=== PATIENT | female | born 1940 | race Caucasian/White ===

== ENCOUNTER 2018-11-09 14:13 | Inpatient (IN) | payer MEDICARE, MEDICAID ==
[~2018-11-09] VITALS: Ht 154.9 cm; Wt 57.6 kg
[2018-11-09 17:00] VITALS: BP 158/66
[2018-11-09] MEDS ORDERED: ACETAMINOPHEN 325 MG TABLET PO PRN (17:15)
[2018-11-09] MEDS ORDERED: TraMADol HCL 50 MG TABLET PO PRN (17:15)
[2018-11-09] MEDS ORDERED: DOCUSATE SODIUM 283 MG/5 ML MINI-ENEMA PR PRN (17:15)
[2018-11-09] MEDS ORDERED: DEXTROSE 50%-WATER 25 GM/50 ML SYRINGE IVP PRN (17:15)
[2018-11-09] MEDS: INSULIN LISPRO 100 UNITS/ML SQ SCH (18:30)
[2018-11-09] MEDS: INSULIN LISPRO 100 UNITS/ML SQ PRN (18:31)
[2018-11-09] MEDS: CARVEDILOL 12.5 MG TABLET PO SCH (19:05)
[2018-11-09 20:03] LABS: GLUCOMETER DEV NAME(LOC) 2WR.2; GLUCOSE,POINT OF CARE 146 MG/DL (70-110)
[2018-11-09 20:32] VITALS: BP 141/54
[2018-11-09] MEDS: TIMOLOL MALEATE 0.5% 5 ML OPHTHALMIC SOLUTION OU SCH ×2 (21:00→21:11)
[2018-11-09] MEDS: FAMOTIDINE 20 MG TABLET PO SCH (21:11)
[2018-11-09 21:34] LABS: GLUCOMETER DEV NAME(LOC) 2WR.2; GLUCOSE,POINT OF CARE 189 MG/DL (70-110)
[2018-11-09 22:01] VITALS: BP 153/64
[2018-11-10] VITALS: BP 151/72
[2018-11-10 06:29] LABS: GLUCOMETER DEV NAME(LOC) 2WR.1; GLUCOSE,POINT OF CARE 116 MG/DL (70-110)
[2018-11-10 06:49] LABS: BASOPHILS % (AUTO) 0.9 % (0.0-2.0); EOSINOPHILS % (AUTO) 1.4 % (1.0-6.0); HEMATOCRIT 35.8 % (36-46); HEMOGLOBIN 12.5 g/dL (12.0-16.0); LYMPHOCYTES # (AUTO) 1.3 K/uL (1.0-4.8); LYMPHOCYTES % (AUTO) 20.3 % (22.0-44.0); MEAN CORPUSCULAR HEMOGLOBIN 32.2 pg (26.0-34.0); MEAN CORPUSCULAR VOLUME 92 fL (80-100); MONOCYTES # (AUTO) 0.7 K/uL (0.1-1.0); NEUTROPHILS # (AUTO) 4.4 K/uL (1.8-7.7); NEUTROPHILS % (AUTO) 66.4 % (40.0-70.0); PLATELET COUNT (AUTO) 212 K/uL (150-450); RED BLOOD CELL COUNT(AUTO) 3.89 MIL/uL (4.00-5.20); RED CELL DISTRIBUTION WIDTH 13.1 % (11.5-14.5)
[2018-11-10 07:04] LABS: ALANINE AMINOTRANSFERASE 14 U/L (12-78); ALBUMIN 2.5 g/dL (3.4-5.0); ALKALINE PHOSPHATASE 86 U/L (46-116); ANION GAP 7 mmol/L (8-16); ASPARTATE AMINOTRANSFERASE 15 U/L (15-37); BILIRUBIN,TOTAL 0.4 mg/dL (0.1-1.0); CALCIUM, TOTAL 9.1 mg/dL (8.8-10.5); CARBON DIOXIDE 28 mmol/L (22-29); CHLORIDE 104 mmol/L (98-107); GLUCOSE,RANDOM 133 mg/dL (70-110); POTASSIUM 3.7 mmol/L (3.5-5.1); SODIUM SERUM 139 mmol/L (136-145); TOTAL PROTEIN, SERUM 5.9 g/dL (6.4-8.2); UREA NITROGEN, BLOOD 18 mg/dL (7-18)
[2018-11-10 07:14] LABS: GLOMERULAR FILTR. RATE CALC > 60 mL/min (>60)
[2018-11-10] MEDS ORDERED: INSULIN LISPRO 100 UNITS/ML SQ SCH (07:30)
[2018-11-10] MEDS ORDERED: CARVEDILOL 12.5 MG TABLET PO SCH (07:30)
[2018-11-10 08:00] VITALS: BP 154/64
[2018-11-10] MEDS: TIMOLOL MALEATE 0.5% 5 ML OPHTHALMIC SOLUTION OU SCH ×2 (09:42→21:41)
[2018-11-10] MEDS: VALSARTAN 40 MG TABLET PO SCH (09:42)
[2018-11-10] MEDS: FAMOTIDINE 20 MG TABLET PO SCH ×2 (09:43→21:41)
[2018-11-10] MEDS: AmLODIPine BESYLATE 10 MG TABLET PO SCH (09:43)
[2018-11-10] MEDS: SENNA 187 MG TABLET PO SCH (09:43)
[2018-11-10] MEDS: CARVEDILOL 12.5 MG TABLET PO SCH ×2 (09:43→17:14)
[2018-11-10] MEDS: INSULIN LISPRO 100 UNITS/ML SQ SCH ×3 (09:55→17:16)
[2018-11-10] MEDS ORDERED: LOPERAMIDE HCL 2 MG CAPSULE PO PRN (11:45)
[2018-11-10] MEDS: INSULIN GLARGINE,HUM.REC.ANLOG 100 UNITS/ML SQ SCH (13:10)
[2018-11-10 13:39] LABS: GLUCOMETER DEV NAME(LOC) 2WR.2; GLUCOSE,POINT OF CARE 234 MG/DL (70-110)
[2018-11-10 16:00] VITALS: BP 161/71
[2018-11-10] MEDS: INSULIN LISPRO 100 UNITS/ML SQ PRN ×2 (17:18→21:48)
[2018-11-10] MEDS: MELATONIN 5 MG TABLET PO PRN (21:51)
[2018-11-10] MEDS: ACETAMINOPHEN 325 MG TABLET PO PRN (21:52)
[2018-11-10 22:04] LABS: GLUCOMETER DEV NAME(LOC) 2WR.1; GLUCOSE,POINT OF CARE 221 MG/DL (70-110)
[2018-11-10 22:04] LABS: GLUCOMETER DEV NAME(LOC) 2WR.1; GLUCOSE,POINT OF CARE 310 MG/DL (70-110)
[2018-11-11] VITALS: BP 150/62
[2018-11-11 06:35] LABS: GLUCOMETER DEV NAME(LOC) 2WR.1; GLUCOSE,POINT OF CARE 130 MG/DL (70-110)
[2018-11-11 07:50] VITALS: BP 153/69
[2018-11-11] MEDS: SENNA 187 MG TABLET PO SCH ×2 (09:00→09:15)
[2018-11-11] MEDS: CARVEDILOL 12.5 MG TABLET PO SCH ×2 (09:15→17:20)
[2018-11-11] MEDS: AmLODIPine BESYLATE 10 MG TABLET PO SCH (09:16)
[2018-11-11] MEDS: MULTIVITAMINS WITH MINERALS, THERAPEUTIC TABLET PO SCH (09:16)
[2018-11-11] MEDS: VALSARTAN 40 MG TABLET PO SCH (09:16)
[2018-11-11] MEDS: FAMOTIDINE 20 MG TABLET PO SCH ×2 (09:16→20:39)
[2018-11-11] MEDS: TIMOLOL MALEATE 0.5% 5 ML OPHTHALMIC SOLUTION OU SCH ×2 (09:16→20:39)
[2018-11-11] MEDS: INSULIN LISPRO 100 UNITS/ML SQ SCH ×3 (09:23→17:22)
[2018-11-11 10:20] VITALS: BP 155/66
[2018-11-11 11:25] VITALS: BP 145/66
[2018-11-11] MEDS: INSULIN GLARGINE,HUM.REC.ANLOG 100 UNITS/ML SQ SCH (11:43)
[2018-11-11] MEDS: INSULIN LISPRO 100 UNITS/ML SQ PRN ×2 (11:44→20:43)
[2018-11-11 15:09] LABS: GLUCOMETER DEV NAME(LOC) 2WR.1; GLUCOSE,POINT OF CARE 352 MG/DL (70-110)
[2018-11-11 16:18] VITALS: BP 144/70
[2018-11-11] MEDS: ACETAMINOPHEN 325 MG TABLET PO PRN (17:48)
[2018-11-11 18:38] LABS: GLUCOMETER DEV NAME(LOC) 2WR.1; GLUCOSE,POINT OF CARE 98 MG/DL (70-110)
[2018-11-11] MEDS: MELATONIN 5 MG TABLET PO PRN (20:39)
[2018-11-11 21:19] LABS: GLUCOMETER DEV NAME(LOC) 2WR.2; GLUCOSE,POINT OF CARE 166 MG/DL (70-110)
[2018-11-12 01:27] VITALS: BP 155/62
[2018-11-12 06:29] LABS: GLUCOMETER DEV NAME(LOC) 2WR.2; GLUCOSE,POINT OF CARE 190 MG/DL (70-110)
[2018-11-12 07:18] VITALS: BP 157/65
[2018-11-12] MEDS: CARVEDILOL 12.5 MG TABLET PO SCH ×2 (08:25→16:29)
[2018-11-12] MEDS: INSULIN LISPRO 100 UNITS/ML SQ SCH ×3 (08:28→17:37)
[2018-11-12] MEDS: INSULIN LISPRO 100 UNITS/ML SQ PRN ×3 (08:29→20:44)
[2018-11-12] MEDS: SENNA 187 MG TABLET PO SCH ×2 (08:31→08:38)
[2018-11-12] MEDS: MULTIVITAMINS WITH MINERALS, THERAPEUTIC TABLET PO SCH (08:31)
[2018-11-12] MEDS: FAMOTIDINE 20 MG TABLET PO SCH ×2 (08:31→20:36)
[2018-11-12] MEDS: TIMOLOL MALEATE 0.5% 5 ML OPHTHALMIC SOLUTION OU SCH ×2 (08:32→20:36)
[2018-11-12] MEDS: AmLODIPine BESYLATE 10 MG TABLET PO SCH (08:33)
[2018-11-12 09:57] VITALS: BP 152/69
[2018-11-12] MEDS: VALSARTAN 40 MG TABLET PO SCH (09:58)
[2018-11-12 12:39] LABS: GLUCOMETER DEV NAME(LOC) 2WR.1; GLUCOSE,POINT OF CARE 173 MG/DL (70-110)
[2018-11-12] MEDS: INSULIN GLARGINE,HUM.REC.ANLOG 100 UNITS/ML SQ SCH (12:42)
[2018-11-12 16:08] VITALS: BP 140/65
[2018-11-12 17:14] LABS: GLUCOMETER DEV NAME(LOC) 2WR.2; GLUCOSE,POINT OF CARE 120 MG/DL (70-110)
[2018-11-12] MEDS: MELATONIN 5 MG TABLET PO PRN (20:36)
[2018-11-12] MEDS: GABAPENTIN 100 MG CAPSULE PO SCH (20:36)
[2018-11-12 21:45] LABS: GLUCOMETER DEV NAME(LOC) 2WR.1; GLUCOSE,POINT OF CARE 147 MG/DL (70-110)
[2018-11-13 05:32] VITALS: BP 142/59
[2018-11-13 05:59] LABS: GLUCOMETER DEV NAME(LOC) 2WR.2; GLUCOSE,POINT OF CARE 167 MG/DL (70-110)
[2018-11-13 07:54] VITALS: BP 150/56
[2018-11-13] MEDS: TIMOLOL MALEATE 0.5% 5 ML OPHTHALMIC SOLUTION OU SCH ×2 (08:40→20:48)
[2018-11-13] MEDS: INSULIN LISPRO 100 UNITS/ML SQ SCH ×3 (08:45→17:21)
[2018-11-13] MEDS: INSULIN LISPRO 100 UNITS/ML SQ PRN ×4 (08:46→20:57)
[2018-11-13] MEDS: GABAPENTIN 100 MG CAPSULE PO SCH ×2 (08:49→20:48)
[2018-11-13] MEDS: MULTIVITAMINS WITH MINERALS, THERAPEUTIC TABLET PO SCH (08:49)
[2018-11-13] MEDS: SENNA 187 MG TABLET PO SCH (08:49)
[2018-11-13] MEDS: CARVEDILOL 12.5 MG TABLET PO SCH ×2 (08:49→17:19)
[2018-11-13] MEDS: AmLODIPine BESYLATE 10 MG TABLET PO SCH (08:50)
[2018-11-13] MEDS: VALSARTAN 40 MG TABLET PO SCH (08:50)
[2018-11-13] MEDS: FAMOTIDINE 20 MG TABLET PO SCH ×2 (08:50→20:49)
[2018-11-13 09:50] VITALS: BP 131/61
[2018-11-13 12:25] LABS: GLUCOMETER DEV NAME(LOC) 2WR.2; GLUCOSE,POINT OF CARE 221 MG/DL (70-110)
[2018-11-13] MEDS: INSULIN GLARGINE,HUM.REC.ANLOG 100 UNITS/ML SQ SCH (12:50)
[2018-11-13 16:27] VITALS: BP 95/54
[2018-11-13 18:14] LABS: GLUCOMETER DEV NAME(LOC) 2WR.2; GLUCOSE,POINT OF CARE 147 MG/DL (70-110)
[2018-11-13] MEDS: MELATONIN 5 MG TABLET PO PRN (20:48)
[2018-11-13 21:21] LABS: APPEARANCE,URINE CLEAR (CLEAR); BILIRUBIN,URINE NEGATIVE (NEGATIVE); GLUCOSE, URINE (UA) 500 mg/dL (NEGATIVE); KETONES,URINE NEGATIVE (NEGATIVE); LEUKOCYTE ESTERASE ,URINE NEGATIVE (NEGATIVE); NITRATE,URINE NEGATIVE (NEGATIVE); OCCULT BLOOD,URINE NEGATIVE (NEGATIVE); PROTEIN,URINE SEE CONFIRM (NEGATIVE); UROBILINOGEN,URINE 0.2 mg/dL (<=1.0)
[2018-11-13 21:39] LABS: GLUCOMETER DEV NAME(LOC) 2WR.1; GLUCOSE,POINT OF CARE 173 MG/DL (70-110)
[2018-11-13 21:50] LABS: SULFOSALICYLIC ACID,URINE 2+ (Negative)
[2018-11-13 21:51] LABS: BACTERIA,URINE Moderate /HPF (None Seen)
[2018-11-13 21:52] LABS: RBC,URINE 0-2 /HPF (0-2); SQUAMOUS EPITHELIAL CELL,UR Few /LPF (None Seen); WBC,URINE 0-2 /HPF (0-5)
[2018-11-14] VITALS: BP 117/50
[2018-11-14 05:59] LABS: GLUCOMETER DEV NAME(LOC) 2WR.1; GLUCOSE,POINT OF CARE 129 MG/DL (70-110)
[2018-11-14 07:15] VITALS: BP 130/96
[2018-11-14] MEDS: VALSARTAN 40 MG TABLET PO SCH (08:19)
[2018-11-14] MEDS: INSULIN LISPRO 100 UNITS/ML SQ SCH ×3 (08:19→17:18)
[2018-11-14] MEDS: AmLODIPine BESYLATE 10 MG TABLET PO SCH (08:20)
[2018-11-14] MEDS: SENNA 187 MG TABLET PO SCH (08:20)
[2018-11-14] MEDS: MULTIVITAMINS WITH MINERALS, THERAPEUTIC TABLET PO SCH (08:20)
[2018-11-14] MEDS: GABAPENTIN 100 MG CAPSULE PO SCH ×2 (08:20→20:39)
[2018-11-14] MEDS: CARVEDILOL 12.5 MG TABLET PO SCH ×2 (08:20→17:17)
[2018-11-14] MEDS: TIMOLOL MALEATE 0.5% 5 ML OPHTHALMIC SOLUTION OU SCH ×2 (09:01→20:38)
[2018-11-14] MEDS: FAMOTIDINE 20 MG TABLET PO SCH ×2 (09:01→20:39)
[2018-11-14] MEDS: INSULIN GLARGINE,HUM.REC.ANLOG 100 UNITS/ML SQ SCH (11:39)
[2018-11-14] MEDS: INSULIN LISPRO 100 UNITS/ML SQ PRN ×3 (11:41→20:40)
[2018-11-14 12:39] LABS: GLUCOMETER DEV NAME(LOC) 2WR.1; GLUCOSE,POINT OF CARE 314 MG/DL (70-110)
[2018-11-14 17:29] LABS: GLUCOMETER DEV NAME(LOC) 2WR.2; GLUCOSE,POINT OF CARE 185 MG/DL (70-110)
[2018-11-14 17:48] VITALS: BP 142/55
[2018-11-14] MEDS: MELATONIN 5 MG TABLET PO PRN (20:39)
[2018-11-14 21:04] LABS: GLUCOMETER DEV NAME(LOC) 2WR.1; GLUCOSE,POINT OF CARE 183 MG/DL (70-110)
[2018-11-15] VITALS: BP 120/46
[2018-11-15 05:55] LABS: GLUCOMETER DEV NAME(LOC) 2WR.1; GLUCOSE,POINT OF CARE 143 MG/DL (70-110)
[2018-11-15 07:32] VITALS: BP 141/54
[2018-11-15] MEDS: FAMOTIDINE 20 MG TABLET PO SCH ×2 (08:24→20:42)
[2018-11-15] MEDS: GABAPENTIN 100 MG CAPSULE PO SCH ×2 (08:24→20:42)
[2018-11-15] MEDS: AmLODIPine BESYLATE 10 MG TABLET PO SCH (08:24)
[2018-11-15] MEDS: CARVEDILOL 12.5 MG TABLET PO SCH ×2 (08:24→16:25)
[2018-11-15] MEDS: SENNA 187 MG TABLET PO SCH (08:24)
[2018-11-15] MEDS: VALSARTAN 40 MG TABLET PO SCH (08:24)
[2018-11-15] MEDS: TIMOLOL MALEATE 0.5% 5 ML OPHTHALMIC SOLUTION OU SCH ×2 (08:25→20:42)
[2018-11-15] MEDS: INSULIN LISPRO 100 UNITS/ML SQ SCH ×3 (08:27→16:42)
[2018-11-15] MEDS: INSULIN LISPRO 100 UNITS/ML SQ PRN ×4 (08:28→20:45)
[2018-11-15] MEDS: MULTIVITAMINS WITH MINERALS, THERAPEUTIC TABLET PO SCH (08:39)
[2018-11-15] MEDS: INSULIN GLARGINE,HUM.REC.ANLOG 100 UNITS/ML SQ SCH (12:38)
[2018-11-15 13:39] LABS: GLUCOMETER DEV NAME(LOC) 2WR.1; GLUCOSE,POINT OF CARE 249 MG/DL (70-110)
[2018-11-15 15:42] VITALS: BP 113/57
[2018-11-15 17:20] LABS: GLUCOMETER DEV NAME(LOC) 2WR.2; GLUCOSE,POINT OF CARE 191 MG/DL (70-110)
[2018-11-15] MEDS: MELATONIN 5 MG TABLET PO PRN (20:42)
[2018-11-15 20:59] LABS: GLUCOMETER DEV NAME(LOC) 2WR.2; GLUCOSE,POINT OF CARE 204 MG/DL (70-110)
[2018-11-15] MEDS ORDERED: DICL2100G TP (21:38)
[2018-11-15] MEDS ORDERED: AMLO-511 PO (21:38)
[2018-11-15] MEDS ORDERED: PRED5DRO25 OU (21:38)
[2018-11-15] MEDS ORDERED: DEXL60CA3 PO (21:38)
[2018-11-15] MEDS ORDERED: TIMO.5OS OU (21:38)
[2018-11-15] MEDS ORDERED: ISOS30TA6 PO (21:38)
[2018-11-15] MEDS ORDERED: LOSA50TA64 PO (21:38)
[2018-11-15] MEDS ORDERED: LOPE2 PO (21:38)
[2018-11-15] MEDS ORDERED: INSU200I4 SQ (21:38)
[2018-11-15] MEDS ORDERED: METF-960 PO (21:38)
[2018-11-15] MEDS ORDERED: CYAN-11 IM (21:38)
[2018-11-15] MEDS ORDERED: CARV12 PO (21:38)
[2018-11-16 04:08] VITALS: BP 155/63
[2018-11-16 07:04] LABS: GLUCOMETER DEV NAME(LOC) 2WR.1; GLUCOSE,POINT OF CARE 179 MG/DL (70-110)
[2018-11-16 07:11] VITALS: BP 141/55
[2018-11-16] MEDS: FAMOTIDINE 20 MG TABLET PO SCH ×2 (08:14→21:04)
[2018-11-16] MEDS: GABAPENTIN 100 MG CAPSULE PO SCH ×2 (08:14→21:04)
[2018-11-16] MEDS: VALSARTAN 40 MG TABLET PO SCH (08:14)
[2018-11-16] MEDS: MULTIVITAMINS WITH MINERALS, THERAPEUTIC TABLET PO SCH (08:14)
[2018-11-16] MEDS: ASPIRIN 81 MG CHEWABLE TABLET PO SCH (08:15)
[2018-11-16] MEDS: CARVEDILOL 12.5 MG TABLET PO SCH ×2 (08:15→16:23)
[2018-11-16] MEDS: AmLODIPine BESYLATE 10 MG TABLET PO SCH (08:15)
[2018-11-16] MEDS: INSULIN LISPRO 100 UNITS/ML SQ SCH ×3 (08:20→17:34)
[2018-11-16] MEDS: INSULIN LISPRO 100 UNITS/ML SQ PRN ×4 (08:20→21:05)
[2018-11-16] MEDS: TIMOLOL MALEATE 0.5% 5 ML OPHTHALMIC SOLUTION OU SCH ×2 (08:22→21:04)
[2018-11-16] MEDS: SENNA 187 MG TABLET PO SCH (08:23)
[2018-11-16] MEDS: ACETAMINOPHEN 325 MG TABLET PO PRN (08:36)
[2018-11-16 11:55] LABS: GLUCOMETER DEV NAME(LOC) 2WR.2; GLUCOSE,POINT OF CARE 276 MG/DL (70-110)
[2018-11-16] MEDS: INSULIN GLARGINE,HUM.REC.ANLOG 100 UNITS/ML SQ SCH (12:43)
[2018-11-16 15:59] VITALS: BP 116/45
[2018-11-16 17:04] LABS: GLUCOMETER DEV NAME(LOC) 2WR.1; GLUCOSE,POINT OF CARE 169 MG/DL (70-110)
[2018-11-16] MEDS: MELATONIN 5 MG TABLET PO PRN (21:05)
[2018-11-16 21:39] LABS: GLUCOMETER DEV NAME(LOC) 2WR.2; GLUCOSE,POINT OF CARE 205 MG/DL (70-110)
[2018-11-17 02:35] VITALS: BP 141/51
[2018-11-17 06:06] LABS: GLUCOMETER DEV NAME(LOC) 2WR.1; GLUCOSE,POINT OF CARE 207 MG/DL (70-110)
[2018-11-17 07:49] VITALS: BP 143/53
[2018-11-17] MEDS: SENNA 187 MG TABLET PO SCH ×2 (09:00→20:47)
[2018-11-17] MEDS: INSULIN LISPRO 100 UNITS/ML SQ PRN ×4 (09:17→20:35)
[2018-11-17] MEDS: INSULIN LISPRO 100 UNITS/ML SQ SCH (09:18)
[2018-11-17] MEDS: TIMOLOL MALEATE 0.5% 5 ML OPHTHALMIC SOLUTION OU SCH ×2 (09:19→20:31)
[2018-11-17] MEDS: VALSARTAN 40 MG TABLET PO SCH (09:19)
[2018-11-17] MEDS: FAMOTIDINE 20 MG TABLET PO SCH ×2 (09:20→20:32)
[2018-11-17] MEDS: CARVEDILOL 12.5 MG TABLET PO SCH ×2 (09:20→16:36)
[2018-11-17] MEDS: AmLODIPine BESYLATE 10 MG TABLET PO SCH (09:20)
[2018-11-17] MEDS: MULTIVITAMINS WITH MINERALS, THERAPEUTIC TABLET PO SCH (09:20)
[2018-11-17] MEDS: GABAPENTIN 100 MG CAPSULE PO SCH ×2 (09:20→20:32)
[2018-11-17] MEDS: ASPIRIN 81 MG CHEWABLE TABLET PO SCH (09:24)
[2018-11-17 12:14] LABS: GLUCOMETER DEV NAME(LOC) 2WR.1; GLUCOSE,POINT OF CARE 246 MG/DL (70-110)
[2018-11-17] MEDS: INSULIN GLARGINE,HUM.REC.ANLOG 100 UNITS/ML SQ SCH (13:00)
[2018-11-17 15:10] VITALS: BP 143/77
[2018-11-17] MEDS: MetFORMIN HCL 500 MG TABLET PO SCH (17:41)
[2018-11-17 17:49] LABS: GLUCOMETER DEV NAME(LOC) 2WR.1; GLUCOSE,POINT OF CARE 221 MG/DL (70-110)
[2018-11-17] MEDS: MELATONIN 5 MG TABLET PO PRN (20:32)
[2018-11-17 23:49] LABS: GLUCOMETER DEV NAME(LOC) 2WR.1; GLUCOSE,POINT OF CARE 248 MG/DL (70-110)
[2018-11-18 03:00] VITALS: BP 139/50
[2018-11-18 06:25] LABS: GLUCOMETER DEV NAME(LOC) 2WR.2; GLUCOSE,POINT OF CARE 182 MG/DL (70-110)
[2018-11-18 07:49] VITALS: BP 135/50
[2018-11-18] MEDS: CARVEDILOL 12.5 MG TABLET PO SCH ×2 (08:07→17:18)
[2018-11-18] MEDS: INSULIN LISPRO 100 UNITS/ML SQ PRN ×4 (08:07→21:27)
[2018-11-18] MEDS: MetFORMIN HCL 500 MG TABLET PO SCH ×2 (08:07→17:17)
[2018-11-18] MEDS: GABAPENTIN 100 MG CAPSULE PO SCH ×2 (08:08→20:43)
[2018-11-18] MEDS: MULTIVITAMINS WITH MINERALS, THERAPEUTIC TABLET PO SCH (08:09)
[2018-11-18] MEDS: TIMOLOL MALEATE 0.5% 5 ML OPHTHALMIC SOLUTION OU SCH ×2 (08:09→20:46)
[2018-11-18] MEDS: VALSARTAN 40 MG TABLET PO SCH (08:09)
[2018-11-18] MEDS: FAMOTIDINE 20 MG TABLET PO SCH ×2 (08:09→20:43)
[2018-11-18] MEDS: ASPIRIN 81 MG CHEWABLE TABLET PO SCH (08:09)
[2018-11-18] MEDS: AmLODIPine BESYLATE 10 MG TABLET PO SCH (08:09)
[2018-11-18 12:19] LABS: GLUCOMETER DEV NAME(LOC) 2WR.1; GLUCOSE,POINT OF CARE 342 MG/DL (70-110)
[2018-11-18] MEDS: INSULIN GLARGINE,HUM.REC.ANLOG 100 UNITS/ML SQ SCH (12:30)
[2018-11-18 15:24] VITALS: BP 155/72
[2018-11-18 17:16] VITALS: BP 149/57
[2018-11-18 17:53] LABS: GLUCOMETER DEV NAME(LOC) 2WR.2; GLUCOSE,POINT OF CARE 160 MG/DL (70-110)
[2018-11-18 20:41] VITALS: BP 135/60
[2018-11-18] MEDS: SENNA 187 MG TABLET PO SCH ×2 (20:43→20:48)
[2018-11-18] MEDS: MELATONIN 5 MG TABLET PO PRN (20:46)
[2018-11-18 21:04] LABS: GLUCOMETER DEV NAME(LOC) 2WR.1; GLUCOSE,POINT OF CARE 181 MG/DL (70-110)
[2018-11-18 23:38] VITALS: BP_SYST 121; BP_SYST 142; BP_DIAS 55; BP_DIAS 76
[2018-11-19 06:14] LABS: GLUCOMETER DEV NAME(LOC) 2WR.2; GLUCOSE,POINT OF CARE 195 MG/DL (70-110)
[2018-11-19 07:23] VITALS: BP 145/52
[2018-11-19] MEDS: LinaGLIPtin 5 MG TABLET PO SCH (08:37)
[2018-11-19] MEDS: VALSARTAN 40 MG TABLET PO SCH (08:37)
[2018-11-19] MEDS: GABAPENTIN 100 MG CAPSULE PO SCH ×2 (08:38→20:45)
[2018-11-19] MEDS: MetFORMIN HCL 500 MG TABLET PO SCH ×2 (08:38→16:55)
[2018-11-19] MEDS: ASPIRIN 81 MG CHEWABLE TABLET PO SCH (08:38)
[2018-11-19] MEDS: MULTIVITAMINS WITH MINERALS, THERAPEUTIC TABLET PO SCH (08:38)
[2018-11-19] MEDS: AmLODIPine BESYLATE 10 MG TABLET PO SCH (08:38)
[2018-11-19] MEDS: CARVEDILOL 12.5 MG TABLET PO SCH ×2 (08:38→16:55)
[2018-11-19] MEDS: FAMOTIDINE 20 MG TABLET PO SCH ×2 (08:40→20:45)
[2018-11-19] MEDS: TIMOLOL MALEATE 0.5% 5 ML OPHTHALMIC SOLUTION OU SCH ×2 (08:41→20:45)
[2018-11-19] MEDS: INSULIN LISPRO 100 UNITS/ML SQ PRN ×4 (08:45→20:50)
[2018-11-19 12:29] LABS: GLUCOMETER DEV NAME(LOC) 2WR.1; GLUCOSE,POINT OF CARE 287 MG/DL (70-110)
[2018-11-19 12:47] LABS: APPEARANCE,URINE CLOUDY (CLEAR); BILIRUBIN,URINE NEGATIVE (NEGATIVE); GLUCOSE, URINE (UA) >=1000 mg/dL (NEGATIVE); KETONES,URINE NEGATIVE (NEGATIVE); LEUKOCYTE ESTERASE ,URINE NEGATIVE (NEGATIVE); NITRATE,URINE NEGATIVE (NEGATIVE); OCCULT BLOOD,URINE TRACE (NEGATIVE); PH,URINE 6.5 (5.0-8.0); PROTEIN,URINE SEE CONFIRM (NEGATIVE); UROBILINOGEN,URINE 0.2 mg/dL (<=1.0)
[2018-11-19 13:01] LABS: SULFOSALICYLIC ACID,URINE 1+ (Negative)
[2018-11-19 13:03] LABS: BACTERIA,URINE Many /HPF (None Seen); RBC,URINE 0-2 /HPF (0-2); SQUAMOUS EPITHELIAL CELL,UR Few /LPF (None Seen)
[2018-11-19] MEDS: INSULIN GLARGINE,HUM.REC.ANLOG 100 UNITS/ML SQ SCH (13:08)
[2018-11-19 15:14] VITALS: BP 133/55
[2018-11-19 17:45] LABS: GLUCOMETER DEV NAME(LOC) 2WR.1; GLUCOSE,POINT OF CARE 192 MG/DL (70-110)
[2018-11-19] MEDS: SENNA 187 MG TABLET PO SCH (20:44)
[2018-11-19] MEDS: MELATONIN 5 MG TABLET PO PRN (20:50)
[2018-11-19 21:29] LABS: GLUCOMETER DEV NAME(LOC) 2WR.2; GLUCOSE,POINT OF CARE 210 MG/DL (70-110)
[2018-11-20 05:30] VITALS: BP 143/50
[2018-11-20 06:36] LABS: GLUCOMETER DEV NAME(LOC) 2WR.1; GLUCOSE,POINT OF CARE 176 MG/DL (70-110)
[2018-11-20 07:19] VITALS: BP 138/66
[2018-11-20] MEDS: LinaGLIPtin 5 MG TABLET PO SCH (08:15)
[2018-11-20] MEDS: ASPIRIN 81 MG CHEWABLE TABLET PO SCH (08:16)
[2018-11-20] MEDS: VALSARTAN 40 MG TABLET PO SCH (08:16)
[2018-11-20] MEDS: TIMOLOL MALEATE 0.5% 5 ML OPHTHALMIC SOLUTION OU SCH ×2 (08:16→21:15)
[2018-11-20] MEDS: FAMOTIDINE 20 MG TABLET PO SCH ×2 (08:16→21:15)
[2018-11-20] MEDS: MULTIVITAMINS WITH MINERALS, THERAPEUTIC TABLET PO SCH (08:16)
[2018-11-20] MEDS: MetFORMIN HCL 500 MG TABLET PO SCH ×2 (08:16→16:56)
[2018-11-20] MEDS: GABAPENTIN 100 MG CAPSULE PO SCH ×2 (08:16→21:15)
[2018-11-20] MEDS: AmLODIPine BESYLATE 10 MG TABLET PO SCH (08:17)
[2018-11-20] MEDS: CARVEDILOL 12.5 MG TABLET PO SCH ×2 (08:17→16:56)
[2018-11-20] MEDS: INSULIN LISPRO 100 UNITS/ML SQ PRN ×4 (08:18→21:28)
[2018-11-20] MEDS: INSULIN GLARGINE,HUM.REC.ANLOG 100 UNITS/ML SQ SCH (12:08)
[2018-11-20 12:20] LABS: GLUCOMETER DEV NAME(LOC) 2WR.2; GLUCOSE,POINT OF CARE 299 MG/DL (70-110)
[2018-11-20 15:30] VITALS: BP 127/44
[2018-11-20 17:10] LABS: GLUCOMETER DEV NAME(LOC) 2WR.2; GLUCOSE,POINT OF CARE 193 MG/DL (70-110)
[2018-11-20] MEDS: SENNA 187 MG TABLET PO SCH (21:14)
[2018-11-20] MEDS: MELATONIN 5 MG TABLET PO PRN (21:15)
[2018-11-20 21:59] LABS: GLUCOMETER DEV NAME(LOC) 2WR.1; GLUCOSE,POINT OF CARE 168 MG/DL (70-110)
[2018-11-21 01:05] VITALS: BP 137/56
[2018-11-21 06:14] LABS: GLUCOMETER DEV NAME(LOC) 2WR.2; GLUCOSE,POINT OF CARE 173 MG/DL (70-110)
[2018-11-21 07:57] VITALS: BP 135/50
[2018-11-21] MEDS: AmLODIPine BESYLATE 10 MG TABLET PO SCH (08:23)
[2018-11-21] MEDS: MULTIVITAMINS WITH MINERALS, THERAPEUTIC TABLET PO SCH (08:23)
[2018-11-21] MEDS: LinaGLIPtin 5 MG TABLET PO SCH (08:23)
[2018-11-21] MEDS: VALSARTAN 40 MG TABLET PO SCH (08:24)
[2018-11-21] MEDS: GABAPENTIN 100 MG CAPSULE PO SCH ×2 (08:24→21:02)
[2018-11-21] MEDS: FAMOTIDINE 20 MG TABLET PO SCH ×2 (08:24→21:01)
[2018-11-21] MEDS: ASPIRIN 81 MG CHEWABLE TABLET PO SCH (08:24)
[2018-11-21] MEDS: CARVEDILOL 12.5 MG TABLET PO SCH ×2 (08:24→16:40)
[2018-11-21] MEDS: MetFORMIN HCL 500 MG TABLET PO SCH ×2 (08:24→17:14)
[2018-11-21] MEDS: INSULIN LISPRO 100 UNITS/ML SQ PRN ×4 (08:34→21:33)
[2018-11-21] MEDS: TIMOLOL MALEATE 0.5% 5 ML OPHTHALMIC SOLUTION OU SCH ×2 (08:36→21:02)
[2018-11-21 12:15] LABS: GLUCOMETER DEV NAME(LOC) 2WR.2; GLUCOSE,POINT OF CARE 316 MG/DL (70-110)
[2018-11-21] MEDS: INSULIN GLARGINE,HUM.REC.ANLOG 100 UNITS/ML SQ SCH (12:56)
[2018-11-21 16:00] VITALS: BP 141/59
[2018-11-21] MEDS: PHENAZOPYRIDINE HCL 200 MG TABLET PO SCH ×2 (16:40→21:02)
[2018-11-21 17:39] LABS: GLUCOMETER DEV NAME(LOC) 2WR.1; GLUCOSE,POINT OF CARE 147 MG/DL (70-110)
[2018-11-21] MEDS: SENNA 187 MG TABLET PO SCH ×2 (21:00→21:02)
[2018-11-21 21:45] LABS: GLUCOMETER DEV NAME(LOC) 2WR.2; GLUCOSE,POINT OF CARE 183 MG/DL (70-110)
[2018-11-21] MEDS: MELATONIN 5 MG TABLET PO PRN (22:03)
[2018-11-22] VITALS: BP 124/45
[2018-11-22 06:25] LABS: GLUCOMETER DEV NAME(LOC) 2WR.1; GLUCOSE,POINT OF CARE 184 MG/DL (70-110)
[2018-11-22 07:03] LABS: ANION GAP 6 mmol/L (8-16); CALCIUM, TOTAL 9.1 mg/dL (8.8-10.5); CARBON DIOXIDE 28 mmol/L (22-29); CHLORIDE 102 mmol/L (98-107); GLOMERULAR FILTR. RATE CALC > 60 mL/min (>60); GLUCOSE,RANDOM 199 mg/dL (70-110); SODIUM SERUM 136 mmol/L (136-145); UREA NITROGEN, BLOOD 16 mg/dL (7-18)
[2018-11-22 07:45] VITALS: BP 142/56
[2018-11-22] MEDS: LinaGLIPtin 5 MG TABLET PO SCH (09:18)
[2018-11-22] MEDS: VALSARTAN 40 MG TABLET PO SCH (09:19)
[2018-11-22] MEDS: ASPIRIN 81 MG CHEWABLE TABLET PO SCH (09:19)
[2018-11-22] MEDS: FAMOTIDINE 20 MG TABLET PO SCH ×2 (09:19→21:02)
[2018-11-22] MEDS: TIMOLOL MALEATE 0.5% 5 ML OPHTHALMIC SOLUTION OU SCH ×2 (09:19→21:02)
[2018-11-22] MEDS: PHENAZOPYRIDINE HCL 200 MG TABLET PO SCH ×3 (09:20→21:02)
[2018-11-22] MEDS: AmLODIPine BESYLATE 5 MG TABLET PO SCH (09:20)
[2018-11-22] MEDS: MULTIVITAMINS WITH MINERALS, THERAPEUTIC TABLET PO SCH (09:20)
[2018-11-22] MEDS: MetFORMIN HCL 500 MG TABLET PO SCH (09:20)
[2018-11-22] MEDS: GABAPENTIN 100 MG CAPSULE PO SCH ×2 (09:20→21:02)
[2018-11-22] MEDS: CARVEDILOL 12.5 MG TABLET PO SCH ×2 (09:20→17:08)
[2018-11-22] MEDS: INSULIN LISPRO 100 UNITS/ML SQ PRN ×4 (09:28→21:08)
[2018-11-22] MEDS: ESCITALOPRAM OXALATE 10 MG TABLET PO SCH (12:53)
[2018-11-22] MEDS: INSULIN GLARGINE,HUM.REC.ANLOG 100 UNITS/ML SQ SCH (12:54)
[2018-11-22 13:04] LABS: GLUCOMETER DEV NAME(LOC) 2WR.2; GLUCOSE,POINT OF CARE 304 MG/DL (70-110)
[2018-11-22 16:12] VITALS: BP 102/75
[2018-11-22] MEDS: MetFORMIN HCL 850 MG TABLET PO SCH (17:07)
[2018-11-22 17:53] VITALS: BP 134/74
[2018-11-22 18:30] LABS: GLUCOMETER DEV NAME(LOC) 2WR.1; GLUCOSE,POINT OF CARE 166 MG/DL (70-110)
[2018-11-22] MEDS: SENNA 187 MG TABLET PO SCH (21:02)
[2018-11-22] MEDS: MELATONIN 5 MG TABLET PO PRN (21:05)
[2018-11-22 21:14] LABS: GLUCOMETER DEV NAME(LOC) 2WR.1; GLUCOSE,POINT OF CARE 187 MG/DL (70-110)
[2018-11-23] VITALS: BP 148/50
[2018-11-23 06:15] LABS: GLUCOMETER DEV NAME(LOC) 2WR.1; GLUCOSE,POINT OF CARE 225 MG/DL (70-110)
[2018-11-23 07:23] VITALS: BP 151/64
[2018-11-23] MEDS: PHENAZOPYRIDINE HCL 200 MG TABLET PO SCH ×3 (08:10→21:02)
[2018-11-23] MEDS: TIMOLOL MALEATE 0.5% 5 ML OPHTHALMIC SOLUTION OU SCH ×2 (08:10→21:02)
[2018-11-23] MEDS: MetFORMIN HCL 850 MG TABLET PO SCH ×2 (08:10→16:24)
[2018-11-23] MEDS: ASPIRIN 81 MG CHEWABLE TABLET PO SCH (08:11)
[2018-11-23] MEDS: GABAPENTIN 100 MG CAPSULE PO SCH ×2 (08:11→21:01)
[2018-11-23] MEDS: ESCITALOPRAM OXALATE 10 MG TABLET PO SCH (08:11)
[2018-11-23] MEDS: VALSARTAN 40 MG TABLET PO SCH (08:11)
[2018-11-23] MEDS: LinaGLIPtin 5 MG TABLET PO SCH (08:11)
[2018-11-23] MEDS: MULTIVITAMINS WITH MINERALS, THERAPEUTIC TABLET PO SCH (08:11)
[2018-11-23] MEDS: FAMOTIDINE 20 MG TABLET PO SCH ×2 (08:12→21:01)
[2018-11-23] MEDS: CARVEDILOL 12.5 MG TABLET PO SCH ×2 (08:12→16:24)
[2018-11-23] MEDS: AmLODIPine BESYLATE 5 MG TABLET PO SCH (08:12)
[2018-11-23] MEDS: INSULIN LISPRO 100 UNITS/ML SQ PRN ×3 (08:16→21:13)
[2018-11-23 09:15] VITALS: BP 148/65
[2018-11-23] MEDS: INSULIN GLARGINE,HUM.REC.ANLOG 100 UNITS/ML SQ SCH (12:53)
[2018-11-23 13:04] LABS: GLUCOMETER DEV NAME(LOC) 2WR.2; GLUCOSE,POINT OF CARE 302 MG/DL (70-110)
[2018-11-23 15:57] VITALS: BP 159/69
[2018-11-23] MEDS: NITROFURANTOIN/NITROFURAN MAC 100 MG CAPSULE [MACROBID] PO SCH ×2 (16:24→21:02)
[2018-11-23 17:49] LABS: GLUCOMETER DEV NAME(LOC) 2WR.2; GLUCOSE,POINT OF CARE 94 MG/DL (70-110)
[2018-11-23] MEDS: SENNA 187 MG TABLET PO SCH (21:00)
[2018-11-23] MEDS: MELATONIN 5 MG TABLET PO PRN (21:02)
[2018-11-23 21:44] LABS: GLUCOMETER DEV NAME(LOC) 2WR.2; GLUCOSE,POINT OF CARE 256 MG/DL (70-110)
[2018-11-24] VITALS: BP 140/67
[2018-11-24 03:36] LABS: GLUCOMETER DEV NAME(LOC) 2WR.2; GLUCOSE,POINT OF CARE 107 MG/DL (70-110)
[2018-11-24 06:24] LABS: GLUCOMETER DEV NAME(LOC) 2WR.2; GLUCOSE,POINT OF CARE 141 MG/DL (70-110)
[2018-11-24 07:14] VITALS: BP 149/49
[2018-11-24] MEDS: VALSARTAN 40 MG TABLET PO SCH (08:39)
[2018-11-24] MEDS: LinaGLIPtin 5 MG TABLET PO SCH (08:39)
[2018-11-24] MEDS: ESCITALOPRAM OXALATE 10 MG TABLET PO SCH (08:40)
[2018-11-24] MEDS: MULTIVITAMINS WITH MINERALS, THERAPEUTIC TABLET PO SCH (08:40)
[2018-11-24] MEDS: NITROFURANTOIN/NITROFURAN MAC 100 MG CAPSULE [MACROBID] PO SCH ×2 (08:40→20:40)
[2018-11-24] MEDS: MetFORMIN HCL 850 MG TABLET PO SCH ×2 (08:40→17:50)
[2018-11-24] MEDS: AmLODIPine BESYLATE 5 MG TABLET PO SCH (08:40)
[2018-11-24] MEDS: GABAPENTIN 100 MG CAPSULE PO SCH ×2 (08:40→20:40)
[2018-11-24] MEDS: ASPIRIN 81 MG CHEWABLE TABLET PO SCH (08:41)
[2018-11-24] MEDS: PHENAZOPYRIDINE HCL 200 MG TABLET PO SCH (08:41)
[2018-11-24] MEDS: FAMOTIDINE 20 MG TABLET PO SCH ×2 (08:41→20:40)
[2018-11-24] MEDS: INSULIN LISPRO 100 UNITS/ML SQ PRN ×3 (08:48→21:14)
[2018-11-24] MEDS: CARVEDILOL 12.5 MG TABLET PO SCH ×2 (08:52→17:50)
[2018-11-24 09:33] VITALS: BP 148/63
[2018-11-24] MEDS: TIMOLOL MALEATE 0.5% 5 ML OPHTHALMIC SOLUTION OU SCH ×2 (09:55→20:41)
[2018-11-24] MEDS ORDERED: SENNA 187 MG TABLET PO PRN (11:00)
[2018-11-24] MEDS: INSULIN GLARGINE,HUM.REC.ANLOG 100 UNITS/ML SQ SCH (11:05)
[2018-11-24 11:54] LABS: GLUCOMETER DEV NAME(LOC) 2WR.2; GLUCOSE,POINT OF CARE 353 MG/DL (70-110)
[2018-11-24 17:49] VITALS: BP 177/64
[2018-11-24 18:44] LABS: GLUCOMETER DEV NAME(LOC) 2WR.2; GLUCOSE,POINT OF CARE 107 MG/DL (70-110)
[2018-11-24 20:37] VITALS: BP 154/67
[2018-11-24] MEDS: MELATONIN 5 MG TABLET PO PRN (20:41)
[2018-11-24 21:24] LABS: GLUCOMETER DEV NAME(LOC) 2WR.1; GLUCOSE,POINT OF CARE 194 MG/DL (70-110)
[2018-11-25 04:15] VITALS: BP 120/44
[2018-11-25 05:54] LABS: GLUCOMETER DEV NAME(LOC) 2WR.2; GLUCOSE,POINT OF CARE 167 MG/DL (70-110)
[2018-11-25 07:28] VITALS: BP 150/54
[2018-11-25] MEDS: ESCITALOPRAM OXALATE 10 MG TABLET PO SCH (08:03)
[2018-11-25] MEDS: LinaGLIPtin 5 MG TABLET PO SCH (08:03)
[2018-11-25] MEDS: VALSARTAN 40 MG TABLET PO SCH (08:03)
[2018-11-25] MEDS: GABAPENTIN 100 MG CAPSULE PO SCH ×2 (08:03→20:40)
[2018-11-25] MEDS: TIMOLOL MALEATE 0.5% 5 ML OPHTHALMIC SOLUTION OU SCH ×2 (08:03→20:41)
[2018-11-25] MEDS: CARVEDILOL 12.5 MG TABLET PO SCH ×2 (08:04→16:59)
[2018-11-25] MEDS: NITROFURANTOIN/NITROFURAN MAC 100 MG CAPSULE [MACROBID] PO SCH ×2 (08:04→20:41)
[2018-11-25] MEDS: MULTIVITAMINS WITH MINERALS, THERAPEUTIC TABLET PO SCH (08:04)
[2018-11-25] MEDS: MetFORMIN HCL 850 MG TABLET PO SCH ×2 (08:04→16:59)
[2018-11-25] MEDS: ASPIRIN 81 MG CHEWABLE TABLET PO SCH (08:04)
[2018-11-25] MEDS: FAMOTIDINE 20 MG TABLET PO SCH ×2 (08:04→20:41)
[2018-11-25] MEDS: AmLODIPine BESYLATE 5 MG TABLET PO SCH (08:04)
[2018-11-25] MEDS: INSULIN LISPRO 100 UNITS/ML SQ PRN ×4 (08:21→20:44)
[2018-11-25 11:59] LABS: GLUCOMETER DEV NAME(LOC) 2WR.2; GLUCOSE,POINT OF CARE 181 MG/DL (70-110)
[2018-11-25] MEDS: LIDOCAINE 5% TRANSDERMAL PATCH TD SCH (13:13)
[2018-11-25] MEDS: INSULIN GLARGINE,HUM.REC.ANLOG 100 UNITS/ML SQ SCH (13:21)
[2018-11-25 15:30] VITALS: BP 144/57
[2018-11-25 17:29] LABS: GLUCOMETER DEV NAME(LOC) 2WR.2; GLUCOSE,POINT OF CARE 178 MG/DL (70-110)
[2018-11-25] MEDS: MELATONIN 5 MG TABLET PO PRN (20:41)
[2018-11-25] MEDS: -LIDODERM PATCH NOTE- MISC SCH (20:41)
[2018-11-25 21:49] LABS: GLUCOMETER DEV NAME(LOC) 2WR.2; GLUCOSE,POINT OF CARE 171 MG/DL (70-110)
[2018-11-25] MEDS ORDERED: FAMO20 PO (23:47)
[2018-11-25] MEDS ORDERED: INSU100V SQ (23:47)
[2018-11-25] MEDS ORDERED: GABA-529 PO (23:47)
[2018-11-25] MEDS ORDERED: INSLAN SQ (23:47)
[2018-11-25] MEDS ORDERED: AMLO-512 PO (23:47)
[2018-11-26 01:30] VITALS: BP 146/66
[2018-11-26 06:29] LABS: GLUCOMETER DEV NAME(LOC) 2WR.1; GLUCOSE,POINT OF CARE 184 MG/DL (70-110)
[2018-11-26 07:22] VITALS: BP 152/48
[2018-11-26] MEDS: AmLODIPine BESYLATE 5 MG TABLET PO SCH (08:03)
[2018-11-26] MEDS: CARVEDILOL 12.5 MG TABLET PO SCH ×2 (08:03→16:51)
[2018-11-26] MEDS: MULTIVITAMINS WITH MINERALS, THERAPEUTIC TABLET PO SCH (08:03)
[2018-11-26] MEDS: GABAPENTIN 100 MG CAPSULE PO SCH ×2 (08:03→20:46)
[2018-11-26] MEDS: ASPIRIN 81 MG CHEWABLE TABLET PO SCH (08:03)
[2018-11-26] MEDS: MetFORMIN HCL 850 MG TABLET PO SCH ×2 (08:03→16:51)
[2018-11-26] MEDS: FAMOTIDINE 20 MG TABLET PO SCH ×2 (08:03→20:46)
[2018-11-26] MEDS: NITROFURANTOIN/NITROFURAN MAC 100 MG CAPSULE [MACROBID] PO SCH ×2 (08:03→20:46)
[2018-11-26] MEDS: TIMOLOL MALEATE 0.5% 5 ML OPHTHALMIC SOLUTION OU SCH ×2 (08:03→20:45)
[2018-11-26] MEDS: LinaGLIPtin 5 MG TABLET PO SCH (08:03)
[2018-11-26] MEDS: ESCITALOPRAM OXALATE 10 MG TABLET PO SCH (08:03)
[2018-11-26] MEDS: VALSARTAN 40 MG TABLET PO SCH (08:03)
[2018-11-26] MEDS: INSULIN LISPRO 100 UNITS/ML SQ PRN ×3 (08:11→18:00)
[2018-11-26] MEDS: LIDOCAINE 5% TRANSDERMAL PATCH TD SCH (08:18)
[2018-11-26] MEDS: INSULIN GLARGINE,HUM.REC.ANLOG 100 UNITS/ML SQ SCH (13:12)
[2018-11-26 13:14] LABS: GLUCOMETER DEV NAME(LOC) 2WR.2; GLUCOSE,POINT OF CARE 220 MG/DL (70-110)
[2018-11-26 16:14] VITALS: BP 143/60
[2018-11-26 16:48] VITALS: BP 157/56
[2018-11-26 17:44] LABS: GLUCOMETER DEV NAME(LOC) 2WR.1; GLUCOSE,POINT OF CARE 144 MG/DL (70-110)
[2018-11-26] MEDS: -LIDODERM PATCH NOTE- MISC SCH (20:46)
[2018-11-26] MEDS: MELATONIN 5 MG TABLET PO PRN (20:49)
[2018-11-26 21:13] LABS: GLUCOMETER DEV NAME(LOC) 2WR.1; GLUCOSE,POINT OF CARE 78 MG/DL (70-110)
[2018-11-27 02:00] VITALS: BP 153/60
[2018-11-27 06:35] LABS: GLUCOMETER DEV NAME(LOC) 2WR.2; GLUCOSE,POINT OF CARE 230 MG/DL (70-110)
[2018-11-27 07:25] VITALS: BP 160/78
[2018-11-27] MEDS: MetFORMIN HCL 850 MG TABLET PO SCH ×2 (07:56→18:18)
[2018-11-27] MEDS: NITROFURANTOIN/NITROFURAN MAC 100 MG CAPSULE [MACROBID] PO SCH ×2 (07:56→20:43)
[2018-11-27] MEDS: LinaGLIPtin 5 MG TABLET PO SCH (07:56)
[2018-11-27] MEDS: VALSARTAN 40 MG TABLET PO SCH (07:56)
[2018-11-27] MEDS: CARVEDILOL 12.5 MG TABLET PO SCH ×2 (07:56→18:18)
[2018-11-27] MEDS: AmLODIPine BESYLATE 5 MG TABLET PO SCH (07:57)
[2018-11-27] MEDS: TIMOLOL MALEATE 0.5% 5 ML OPHTHALMIC SOLUTION OU SCH ×2 (07:57→20:52)
[2018-11-27] MEDS: GABAPENTIN 100 MG CAPSULE PO SCH ×2 (07:57→20:52)
[2018-11-27] MEDS: ESCITALOPRAM OXALATE 10 MG TABLET PO SCH (07:57)
[2018-11-27] MEDS: ASPIRIN 81 MG CHEWABLE TABLET PO SCH (07:57)
[2018-11-27] MEDS: FAMOTIDINE 20 MG TABLET PO SCH ×2 (07:57→20:43)
[2018-11-27] MEDS: MULTIVITAMINS WITH MINERALS, THERAPEUTIC TABLET PO SCH (07:57)
[2018-11-27] MEDS: LIDOCAINE 5% TRANSDERMAL PATCH TD SCH (07:58)
[2018-11-27] MEDS: INSULIN LISPRO 100 UNITS/ML SQ PRN ×3 (08:02→20:45)
[2018-11-27 10:16] VITALS: BP 152/65
[2018-11-27 12:35] LABS: GLUCOMETER DEV NAME(LOC) 2WR.2; GLUCOSE,POINT OF CARE 210 MG/DL (70-110)
[2018-11-27] MEDS: INSULIN GLARGINE,HUM.REC.ANLOG 100 UNITS/ML SQ SCH (12:58)
[2018-11-27 15:19] VITALS: BP 156/67
[2018-11-27] MEDS: MELATONIN 5 MG TABLET PO PRN (20:44)
[2018-11-27] MEDS: -LIDODERM PATCH NOTE- MISC SCH (20:52)
[2018-11-27] MEDS ORDERED: ASPI81 PO (22:54)
[2018-11-27] MEDS ORDERED: INSU200I4 SQ (22:54)
[2018-11-27] MEDS ORDERED: MACR100 PO (22:54)
[2018-11-27] MEDS ORDERED: METF-445 PO (22:54)
[2018-11-27] MEDS ORDERED: VALS40TA4 PO (22:54)
[2018-11-27] MEDS ORDERED: AMLO-511 PO (22:54)
[2018-11-27] MEDS ORDERED: MULT-1239 PO (22:54)
[2018-11-27] MEDS ORDERED: LIDO700A15 TD (22:54)
[2018-11-27] MEDS ORDERED: ESCI10TA PO (22:54)
[2018-11-28 04:22] VITALS: BP 141/72
[2018-11-28 07:20] VITALS: BP 155/66
[2018-11-28] MEDS: LIDOCAINE 5% TRANSDERMAL PATCH TD SCH (08:22)
[2018-11-28] MEDS: ESCITALOPRAM OXALATE 10 MG TABLET PO SCH (08:23)
[2018-11-28] MEDS: MetFORMIN HCL 850 MG TABLET PO SCH ×2 (08:23→16:44)
[2018-11-28] MEDS: VALSARTAN 40 MG TABLET PO SCH (08:23)
[2018-11-28] MEDS: LinaGLIPtin 5 MG TABLET PO SCH (08:23)
[2018-11-28] MEDS: NITROFURANTOIN/NITROFURAN MAC 100 MG CAPSULE [MACROBID] PO SCH ×2 (08:23→20:01)
[2018-11-28] MEDS: TIMOLOL MALEATE 0.5% 5 ML OPHTHALMIC SOLUTION OU SCH ×2 (08:23→20:02)
[2018-11-28] MEDS: ASPIRIN 81 MG CHEWABLE TABLET PO SCH (08:23)
[2018-11-28] MEDS: AmLODIPine BESYLATE 5 MG TABLET PO SCH (08:24)
[2018-11-28] MEDS: GABAPENTIN 100 MG CAPSULE PO SCH ×2 (08:24→20:01)
[2018-11-28] MEDS: MULTIVITAMINS WITH MINERALS, THERAPEUTIC TABLET PO SCH (08:24)
[2018-11-28] MEDS: CARVEDILOL 12.5 MG TABLET PO SCH ×2 (08:25→16:44)
[2018-11-28] MEDS: FAMOTIDINE 20 MG TABLET PO SCH ×2 (08:25→20:01)
[2018-11-28] MEDS: INSULIN LISPRO 100 UNITS/ML SQ PRN ×3 (08:35→20:04)
[2018-11-28 10:41] VITALS: BP 153/65
[2018-11-28] MEDS: INSULIN GLARGINE,HUM.REC.ANLOG 100 UNITS/ML SQ SCH (12:48)
[2018-11-28 13:59] LABS: GLUCOMETER DEV NAME(LOC) 2WR.2; GLUCOSE,POINT OF CARE 126 MG/DL (70-110)
[2018-11-28 14:00] LABS: GLUCOMETER DEV NAME(LOC) 2WR.2; GLUCOSE,POINT OF CARE 212 MG/DL (70-110)
[2018-11-28 14:01] LABS: GLUCOMETER DEV NAME(LOC) 2WR.2; GLUCOSE,POINT OF CARE 153 MG/DL (70-110)
[2018-11-28 14:02] LABS: GLUCOMETER DEV NAME(LOC) 2WR.2; GLUCOSE,POINT OF CARE 218 MG/DL (70-110)
[2018-11-28 15:34] VITALS: BP 143/55
[2018-11-28] MEDS: MELATONIN 5 MG TABLET PO PRN (20:02)
[2018-11-28] MEDS: -LIDODERM PATCH NOTE- MISC SCH (20:56)
[2018-11-29 03:00] VITALS: BP 137/56
[2018-11-29 07:43] VITALS: BP 151/65
[2018-11-29] MEDS: TIMOLOL MALEATE 0.5% 5 ML OPHTHALMIC SOLUTION OU SCH (08:22)
[2018-11-29] MEDS: MetFORMIN HCL 850 MG TABLET PO SCH (08:22)
[2018-11-29] MEDS: LinaGLIPtin 5 MG TABLET PO SCH (08:22)
[2018-11-29] MEDS: LIDOCAINE 5% TRANSDERMAL PATCH TD SCH (08:22)
[2018-11-29] MEDS: CARVEDILOL 12.5 MG TABLET PO SCH (08:22)
[2018-11-29] MEDS: VALSARTAN 40 MG TABLET PO SCH (08:22)
[2018-11-29] MEDS: AmLODIPine BESYLATE 5 MG TABLET PO SCH (08:23)
[2018-11-29] MEDS: MULTIVITAMINS WITH MINERALS, THERAPEUTIC TABLET PO SCH (08:23)
[2018-11-29] MEDS: GABAPENTIN 100 MG CAPSULE PO SCH (08:23)
[2018-11-29] MEDS: NITROFURANTOIN/NITROFURAN MAC 100 MG CAPSULE [MACROBID] PO SCH (08:23)
[2018-11-29] MEDS: ESCITALOPRAM OXALATE 10 MG TABLET PO SCH (08:23)
[2018-11-29] MEDS: FAMOTIDINE 20 MG TABLET PO SCH (08:23)
[2018-11-29] MEDS: ASPIRIN 81 MG CHEWABLE TABLET PO SCH (08:24)
[2018-11-29] MEDS: INSULIN LISPRO 100 UNITS/ML SQ PRN ×2 (08:26→12:37)
[2018-11-29 08:50] LABS: GLUCOMETER DEV NAME(LOC) 2WR.1; GLUCOSE,POINT OF CARE 217 MG/DL (70-110)
[2018-11-29 08:52] LABS: GLUCOMETER DEV NAME(LOC) 2WR.2; GLUCOSE,POINT OF CARE 187 MG/DL (70-110)
[2018-11-29 08:56] LABS: GLUCOMETER DEV NAME(LOC) 2WR.1; GLUCOSE,POINT OF CARE 119 MG/DL (70-110)
[2018-11-29 12:24] LABS: GLUCOMETER DEV NAME(LOC) 2WR.2; GLUCOSE,POINT OF CARE 245 MG/DL (70-110)
[2018-11-29] MEDS: INSULIN GLARGINE,HUM.REC.ANLOG 100 UNITS/ML SQ SCH (12:37)
== END 2018-11-29 12:45 | disposition home health service (06) | DRG 552 ==
LOC: 2WR 16:50
PROVIDERS: ADMIT Physical Medicine & Rehabilitation; ATTEND Physical Medicine & Rehabilitation
DX: S32.021A Stable burst fracture of second lumbar vertebra, initial encounter for closed fracture (principal); N39.0 Urinary tract infection, site not specified; E46 Unspecified protein-calorie malnutrition; I10 Essential (primary) hypertension; M81.0 Age-related osteoporosis without current pathological fracture; K58.9 Irritable bowel syndrome, unspecified; K21.9 Gastro-esophageal reflux disease without esophagitis; G47.00 Insomnia, unspecified; F41.9 Anxiety disorder, unspecified; E11.9 Type 2 diabetes mellitus without complications; F43.23 Adjustment disorder with mixed anxiety and depressed mood; B96.20 Unspecified Escherichia coli [E. coli] as the cause of diseases classified elsewhere; Z79.899 Other long term (current) drug therapy; Z98.49 Cataract extraction status, unspecified eye; Z68.24 Body mass index [BMI] 24.0-24.9, adult; Z79.4 Long term (current) use of insulin; Z79.82 Long term (current) use of aspirin; R26.9 Unspecified abnormalities of gait and mobility
CPT/HCPCS: 72100; 72148; 83036; 87081; 87086; 97110; 97112; 97116; 97140; 97150; 97162; 97166; 97530; 97535; 99366; J1815